=== PATIENT | male | born 1955 | race Caucasian/White ===

== ENCOUNTER 2016-08-03 16:40 | Emergency (ER) | payer MEDICARE, MEDICAID ==
[2016-08-03 16:57] VITALS: BP 155/75
--- NOTE | 2016-08-03 17:44 | EDM.PDOC ---
ED HPI GENERAL MEDICAL PROBLEM - General Chief Complaint: General Stated Complaint: wound on abdomen Time Seen by Provider: 08/03/16 17:20 Source of Information: Reports: Patient History Limitations: Reports: No limitations - History of Present Illness INITIAL COMMENTS - FREE TEXT/NARRATIVE: PT STATES HE NOTICED BLEEDING FROM ABDOMINAL HERNIA AT 0300 TODAY. DENIES TRAUMA , FEVER, N/V/D. ADMITS AREA HAS BEEN IRRITATED LATELY AND MAY HAVE BEEN CAUSED BY ONLY SWEAT PANTS HE WEARS. 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) - Related Data Allergies Allergy/AdvReac Type Severity Reaction Status Date / Time No Known Drug Allergies Allergy Cannot Verified 08/03/16 16:49 Remember Home Meds: Home Meds Aspirin/Acetaminophen/Caffeine [Extra Pain Relief Caplet] 2 tab PO TID PRN 12/10 [History] Furosemide [Lasix] 80 mg PO BID 12/11/15 [History] Levothyroxine 25 mcg PO ACBREAKFAST 12/11/15 [History] Pregabalin [Lyrica] 50 mg PO BID@12/11/15 [History] Sertraline [Zoloft] 50 mg PO DAILY 12/11/15 [History] Simvastatin 20 mg PO DAILY 12/11/15 [History] Terbinafine [LamISIL] 250 mg PO DAILY 12/11/15 [History] Topiramate [Topamax] 25 mg PO BID 12/11/15 [History] oxyCODONE 5 mg PO TID 12/11/15 [History] oxyCODONE ER [OxyCONTIN] 10 mg PO DAILY@16 12/11/15 [History] Pregabalin [Lyrica] 25 mg PO TID 12/14/15 [History] Pregabalin [Lyrica] 50 mg PO DAILY PRN 12/14/15 [History] Cefuroxime Axetil [Cefuroxime] 500 mg PO BID 03/18/16 [History] Doxycycline Hyclate 100 mg PO DAILY 03/18/16 [History] Rup Rub 1 gm TOP DAILY 03/18/16 [History] Aspirin 325 mg PO DAILY 06/01/16 [History] Potassium Chloride [Klor-Con M20] 40 meq PO BID 06/01/16 [History] Pseudoephedrine HCl [Sudafed] 30 mg PO TID PRN 06/01/16 [History] Spironolactone [Aldactone] 25 mg PO DAILY 06/01/16 [History] oxyCODONE ER [OxyCONTIN] 10 mg PO DAILY PRN 06/01/16 [History] Past Medical History HEENT History: Reports: Other (see below) Other HEENT History: glasses Cardiovascular History: Reports: CAD, Heart Failure, High cholesterol, Hypertension, SOB on exertion Other Cardiovascular History: Dyslipidemia/hypercholesterolemia Respiratory History: Reports: Sleep apnea, SOB Other Respiratory History: cpap - does not use it. home o2 Gastrointestinal History: Reports: Other (see below) Other Gastrointestinal History: morbid obesity. lg abd hernia. Very large panniculus- abd. Constipation. Melena/medication at times Genitourinary History: Reports: Urinary incontinence Other Genitourinary History: frequency. 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 Previous kidney failure. Mccann catheter in place Musculoskeletal History: Reports: Arthritis, Back pain, chronic, Fracture Other Musculoskeletal History: L and R knee pain - chronic. R leg saeed lateraly Neurological History: Reports: Concussion Psychiatric History: Reports: None Endocrine/Metabolic History: Reports: Hypothyroidism Hematologic History: Reports: None Dermatologic History: Reports: Cellulitis, Venous stasis dermatitis Other Dermatologic History: R groin with ulcers in fold - reports HX of same. hard dry/dark/roug/scaly skin over entire large pendoulous abd. dry scabs to post scrotum. States h/o MRSA - Infectious Disease History Infectious Disease History: Reports: MRSA Other Infectious Disease History: Recurrent cellulitis. Recurrent lower leg infection - Past Surgical History Head Surgeries/Procedures: Reports: None HEENT Surgical History: Reports: Other (see below) Other HEENT Surgeries/Procedures: steal joshua removed fro eye Neurological Surgical History: Reports: None - History Comment History Comment: Morbid morbid obesity. Obstructive sleep apnea. Noncompliance Social & Family History - Family History Family Medical History: Noncontributory Other Oncologic Family History: sister from cancer, unsure which kind - Tobacco Use Smoking Status *Q: Former Smoker Years of Tobacco use: 22 Packs/Tins Daily: 1 Used Tobacco, but Quit: Yes Month Tobacco Last Used: july Second Hand Smoke Exposure: Yes - Caffeine Use Caffeine Use: Reports: None - Alcohol Use Days Per Week of Alcohol Use: 7 Number of Drinks Per Day: 1 Total Drinks Per Week: 7 - Recreational Drug Use Recreational Drug Use: No - Living Situation & Occupation Living situation: Reports: Occupation: disabled ED ROS GENERAL - Review of Systems Review Of Systems: ROS reveals no pertinent complaints other than HPI. Constitutional: Reports: no symptoms HEENT: Reports: No symptoms Respiratory: Reports: No Symptoms Cardiovascular: Reports: No symptoms Endocrine: Reports: no symptoms GI/Abdominal: Reports: No symptoms : Reports: no symptoms Musculoskeletal: Reports: no symptoms Skin: Reports: wound (ON ABDOMINAL HERNIA) Neurological: Reports: No Symptoms Psychiatric: Reports: No symptoms Hematologic/Lymphatic: Reports: no symptoms Immunologic: Reports: no symptoms ED EXAM, GENERAL - Physical Exam Exam: See Below Free Text/Narrative:: PT IS MORBIDLY OBESE AT APPROX 500 LBS. HAS ABDOMINAL HERNIA FOR MANY YEARS AND IS SCHEDULED FOR SURGERY IN NEXT COMING WEEKS. DENIES PAIN. STATES THE WOUND OPENED UP LAST NIGHT AND BLEED FOR A SHORT TIME. HAS SINCE RESOLVED. WOUND IS 2CM UL;CERATION WITH MINIMAL BORDER ERYTHEMA. PT IS AFEBRILE AND ALREADY ON SEVERAL ABX. Exam Limited By: No limitations General Appearance: alert, WD/WN, no apparent distress Throat/Mouth: Normal inspection, Normal oropharynx, No airway compromise Respiratory/Chest: no respiratory distress, lungs clear Cardiovascular: regular rate, rhythm GI/Abdominal: normal bowel sounds, soft, non tender Neurological: alert, oriented, normal cognition Psychiatric: normal affect, normal mood Skin Exam: Warm, Dry, Normal color, No rash, Other (ULCER WITH MINIMAL BORDER ERYTHEMA) Lymphatic: no adenopathy Course - Vital Signs Last Recorded V/S: Last Vital Signs Temp 99.0 F 08/03/16 16:45 Pulse 80 08/03/16 16:45 Resp 18 08/03/16 16:45 BP 155/75 H 08/03/16 16:45 Pulse Ox 93 L 08/03/16 16:45 - Re-Assessments/Exams Free Text/Narrative Re-Assessment/Exam: 08/03/16 17:45 PT AFEBRILE, NONTOXIC APPEARING, VSS. WOUND DRESSED AND EXTRA DRESSINGS WITH INSTRUCTION GIVEN TO PT BY NURSE Departure - Departure Time of Disposition: 17:47 Disposition: Home, Self-Care 01 Condition: good Clinical Impression: Wound dehiscence, Skin ulcer of right groin, limited to breakdown of skin, Skin ulcer of abdomen Instructions: How to Prevent Pressure Injuries, How to Change Your Dressing, [id number] Forms: ED Department Discharge - Assessment/Plan Assessment:: HERNIA/ ABDOMINAL WOUND CARE Plan: DRESSING CHANGES AND F/U WITH PCP
== END 2016-08-03 18:00 | disposition home or self-care (01) ==
LOC: KA.ED 16:40
DX: T81.30XA Disruption of wound, unspecified, initial encounter (principal); L98.491 Non-pressure chronic ulcer of skin of other sites limited to breakdown of skin; I25.10 Atherosclerotic heart disease of native coronary artery without angina pectoris; I11.0 Hypertensive heart disease with heart failure; I50.9 Heart failure, unspecified; E78.00 Pure hypercholesterolemia, unspecified; E66.01 Morbid (severe) obesity due to excess calories; M19.90 Unspecified osteoarthritis, unspecified site; E03.9 Hypothyroidism, unspecified; Z87.891 Personal history of nicotine dependence; Z86.14 Personal history of Methicillin resistant Staphylococcus aureus infection; Z79.82 Long term (current) use of aspirin; Z79.899 Other long term (current) drug therapy
CPT/HCPCS: 99282

== ENCOUNTER 2016-08-11 16:12 | Emergency (ER) | payer MEDICARE, MEDICAID ==
[2016-08-11 16:45] VITALS: BP 147/69
--- NOTE | 2016-08-11 18:13 | EDM.PDOC ---
ED HISTORY OF PRESENT ILLNESS - General Chief Complaint: Respiratory Problem Stated Complaint: short of breath Time Seen by Provider: 08/11/16 17:00 Source of Information: Reports: Patient History Limitations: Reports: No limitations - History of Present Illness INITIAL COMMENTS - FREE TEXT/NARRATIVE: PT SENT BY [facility] BECAUSE PT C/O WEIGHT GAIN OVER PAST FEW MONTHS, BILAT LEG PAIN OF CHRONIC NATURE, AND BEGINNING TO DEVELOP SOB. DENIES CP, FEVER , FALL, OR BOWEL CHANGES. Timing/Duration: Reports: Gradual onset Severity: mild Location, General: Reports: lower extremity, right Quality: Reports: Ache Improves with: Reports: None Worsens with: Reports: None Associated Symptoms (General): Reports: shortness of breath. Denies: cough, fever/chills, nausea/vomiting - Related Data Allergies/ADRs: Allergies Allergy/AdvReac Type Severity Reaction Status Date / Time No Known Drug Allergies Allergy Cannot Verified 08/11/16 16:45 Remember Home Meds: Home Meds Aspirin/Acetaminophen/Caffeine [Extra Pain Relief Caplet] 2 tab PO TID PRN 12/10 [History] Furosemide [Lasix] 80 mg PO BID 12/11/15 [History] Levothyroxine 25 mcg PO ACBREAKFAST 12/11/15 [History] Pregabalin [Lyrica] 50 mg PO BID@12/11/15 [History] Sertraline [Zoloft] 50 mg PO DAILY 12/11/15 [History] Simvastatin 20 mg PO DAILY 12/11/15 [History] Terbinafine [LamISIL] 250 mg PO DAILY 12/11/15 [History] Topiramate [Topamax] 25 mg PO BID 12/11/15 [History] oxyCODONE 5 mg PO TID 12/11/15 [History] oxyCODONE ER [OxyCONTIN] 10 mg PO DAILY@16 12/11/15 [History] Pregabalin [Lyrica] 25 mg PO TID 12/14/15 [History] Pregabalin [Lyrica] 50 mg PO DAILY PRN 12/14/15 [History] Cefuroxime Axetil [Cefuroxime] 500 mg PO BID 03/18/16 [History] Doxycycline Hyclate 100 mg PO DAILY 03/18/16 [History] Rup Rub 1 gm TOP DAILY 03/18/16 [History] Aspirin 325 mg PO DAILY 06/01/16 [History] Potassium Chloride [Klor-Con M20] 40 meq PO BID 06/01/16 [History] Pseudoephedrine HCl [Sudafed] 30 mg PO TID PRN 06/01/16 [History] Spironolactone [Aldactone] 25 mg PO DAILY 06/01/16 [History] oxyCODONE ER [OxyCONTIN] 10 mg PO DAILY PRN 06/01/16 [History] Past Medical History HEENT History: Reports: Other (see below) Other HEENT History: glasses Cardiovascular History: Reports: CAD, Heart Failure, High cholesterol, Hypertension, SOB on exertion Other Cardiovascular History: Dyslipidemia/hypercholesterolemia Respiratory History: Reports: Sleep apnea, SOB Other Respiratory History: cpap - does not use it. home o2 Gastrointestinal History: Reports: Other (see below) Other Gastrointestinal History: morbid obesity. lg abd hernia. Very large panniculus- abd. Constipation. Melena/medication at times Genitourinary History: Reports: Urinary incontinence Other Genitourinary History: frequency. 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 Previous kidney failure. Mccann catheter in place Musculoskeletal History: Reports: Arthritis, Back pain, chronic, Fracture Other Musculoskeletal History: L and R knee pain - chronic. R leg saeed lateraly Neurological History: Reports: Concussion Psychiatric History: Reports: None Endocrine/Metabolic History: Reports: Hypothyroidism Hematologic History: Reports: None Dermatologic History: Reports: Cellulitis, Venous stasis dermatitis Other Dermatologic History: R groin with ulcers in fold - reports HX of same. hard dry/dark/roug/scaly skin over entire large pendoulous abd. dry scabs to post scrotum. States h/o MRSA - Infectious Disease History Infectious Disease History: Reports: MRSA Other Infectious Disease History: Recurrent cellulitis. Recurrent lower leg infection - Past Surgical History Head Surgeries/Procedures: Reports: None HEENT Surgical History: Reports: Other (see below) Other HEENT Surgeries/Procedures: steal joshua removed fro eye Neurological Surgical History: Reports: None - History Comment History Comment: Morbid morbid obesity. Obstructive sleep apnea. Noncompliance Social & Family History - Family History Family Medical History: Noncontributory Other Oncologic Family History: sister from cancer, unsure which kind - Tobacco Use Smoking Status *Q: Former Smoker Years of Tobacco use: 22 Packs/Tins Daily: 0.3 Used Tobacco, but Quit: Yes Month Tobacco Last Used: july Second Hand Smoke Exposure: Yes - Caffeine Use Caffeine Use: Reports: None - Alcohol Use Days Per Week of Alcohol Use: 7 Number of Drinks Per Day: 1 Total Drinks Per Week: 7 - Recreational Drug Use Recreational Drug Use: No - Living Situation & Occupation Living situation: Reports: Occupation: disabled ED ROS GENERAL - Review of Systems Review Of Systems: ROS reveals no pertinent complaints other than HPI. Constitutional: Reports: no symptoms HEENT: Reports: No symptoms Respiratory: Reports: Shortness of Breath Cardiovascular: Reports: No symptoms Endocrine: Reports: no symptoms GI/Abdominal: Reports: No symptoms : Reports: other (HAS INDWELLING CATH OF CHRONIC NATURE) Skin: Reports: no symptoms Neurological: Reports: No Symptoms Psychiatric: Reports: No symptoms Hematologic/Lymphatic: Reports: no symptoms Immunologic: Reports: no symptoms ED EXAM, GENERAL - Physical Exam Exam: See Below Free Text/Narrative:: PT IS A 600LB MORBIDLY OBESE MALE WHO LIVES ALONE AND APPEARS DISHEVELED. Exam Limited By: No limitations General Appearance: alert, WD/WN, no apparent distress Throat/Mouth: Normal inspection, Normal oropharynx, No airway compromise Head: atraumatic, normocephalic Respiratory/Chest: no respiratory distress, normal breath sounds, no accessory muscle use Cardiovascular: regular rate, rhythm, no murmur Extremities: pedal edema Neurological: alert, oriented, normal cognition Psychiatric: normal affect, normal mood Skin Exam: Warm, Dry, Intact, Normal color, No rash Lymphatic: no adenopathy Course - Vital Signs Last Recorded V/S: Last Vital Signs Temp 99.0 F 08/11/16 16:42 Pulse 80 08/11/16 16:42 Resp 22 H 08/11/16 16:42 BP 147/69 H 08/11/16 16:42 Pulse Ox 90 L 08/11/16 16:42 - Orders/Labs/Meds Orders: Active Orders 24 hr Category Date Time Status Chest 1V Frontal [CR] Stat Exams 08/11/16 17:25 Ordered - Radiology Interpretation Free Text/Narrative:: CXR NEGATIVE FOR ACUTE PROCESS - Re-Assessments/Exams Free Text/Narrative Re-Assessment/Exam: 08/11/16 18:39 PT AFEBRILE, NONTOXIC APPEARING. WILL F/U WITH PCP Departure - Departure Time of Disposition: 18:40 Disposition: Home, Self-Care 01 Condition: fair Clinical Impression: Obesity, morbid Qualifiers: Obesity type: unspecified obesity type Qualified Code(s): E66.01 - Morbid ( severe) obesity due to excess calories Chronic pain Qualifiers: Chronic pain type: chronic pain syndrome Qualified Code(s): G89.4 - Chronic pain syndrome Instructions: Shortness of Breath, [id number], Obesity Forms: ED Department Discharge Additional Instructions: FOLLOW UP WITH YOUR PCP IN NEXT 1-2 DAYS - My Orders Last 24 Hours: My Active Orders 08/11/16 17:25 Chest 1V Frontal [CR] Stat - Assessment/Plan Last 24 Hours: My Active Orders 08/11/16 17:25 Chest 1V Frontal [CR] Stat Assessment:: MORBID OBESITY WITH INCREASING SOB Plan: F/U WITH PCP
== END 2016-08-11 22:15 | disposition home or self-care (01) ==
LOC: KA.ED 16:12
DX: E66.01 Morbid (severe) obesity due to excess calories (principal); G89.4 Chronic pain syndrome; I25.10 Atherosclerotic heart disease of native coronary artery without angina pectoris; E78.00 Pure hypercholesterolemia, unspecified; I11.0 Hypertensive heart disease with heart failure; E03.9 Hypothyroidism, unspecified; Z87.891 Personal history of nicotine dependence; Z79.899 Other long term (current) drug therapy
CPT/HCPCS: 71010; 99282; 99285

== ENCOUNTER 2017-09-01 23:45 | Emergency (ER) | payer MEDICARE, MEDICAID ==
[2017-09-01 23:53] VITALS: BP 128/60
[2017-09-02] MEDS ORDERED: Sodium Chloride 0.9% 5 ML Syringe FLUSH PRN (00:15)
--- NOTE | 2017-09-02 00:49 | EDM.PDOC ---
ED HPI GENERAL MEDICAL PROBLEM - General Chief Complaint: General Stated Complaint: general weakness Time Seen by Provider: 09/02/17 00:05 Source of Information: Reports: Patient, EMS History Limitations: Reports: No Limitations - History of Present Illness INITIAL COMMENTS - FREE TEXT/NARRATIVE: 62 YO WM morbidly obese with multiple medical problems presents to ER with progressive weakness and shortness of breath. Pt reports he is unable to care for himself due to his weight and worsening condition. Pt complaining today of episode of shortness of breath and weakness. Pt states he can not transfer without assistance. Pt reports he also has pain and infection to his right great toe. Pt denies chest pain, dizziness or nausea/vomiting. Pt had an appointment in clinic today but was unable to make it due to weakness. Pt denies any fever/chills, no URI symptoms. Onset: Today Duration: Chronic, Getting Worse Location: Reports: Generalized Severity: Moderate Improves with: Reports: None Worsens with: Reports: None Associated Symptoms: Reports: Malaise, Shortness of Breath, Weakness. Denies: Confusion, Chest Pain, Cough, cough w sputum, Diaphoresis, Fever/Chills, Headaches, Loss of Appetite, Nausea/Vomiting, Rash, Seizure, Syncope - Related Data Allergies Allergy/AdvReac Type Severity Reaction Status Date / Time No Known Drug Allergies Allergy Cannot Verified 09/01/17 23:47 Remember Home Meds: Home Meds Furosemide [Lasix] 80 mg PO BID 12/11/15 [History] Levothyroxine 25 mcg PO ACBREAKFAST 12/11/15 [History] Sertraline [Zoloft] 50 mg PO DAILY 12/11/15 [History] Simvastatin 20 mg PO DAILY 12/11/15 [History] Terbinafine [LamISIL] 250 mg PO DAILY 12/11/15 [History] Topiramate [Topamax] 25 mg PO BID 12/11/15 [History] oxyCODONE 5 mg PO TID 12/11/15 [History] Pregabalin [Lyrica] 25 mg PO TID 12/14/15 [History] Rup Rub 1 applic TOP BID 03/18/16 [History] Aspirin 325 mg PO DAILY 06/01/16 [History] Pseudoephedrine HCl [Sudafed] 30 mg PO TID PRN 06/01/16 [History] Spironolactone [Aldactone] 25 mg PO DAILY 06/01/16 [History] Cyanocobalamin (Vitamin B-12) [Vitamin B-12] 5,000 mcg SL TID 08/26/16 [History] Metolazone [Zaroxolyn] 2.5 mg PO DAILY 08/26/16 [History] Pregabalin [Lyrica] 50 mg PO BID 08/26/16 [History] oxyCODONE ER [OxyCONTIN] 10 mg PO BEDTIME 08/26/16 [History] Doxycycline Calcium [IMW: Doxycycline] 100 mg PO DAILY #30 capsule 08/29/16 [Rx] Ibuprofen 600 mg PO Q4H 09/02/17 [History] Nystatin [Nystatin Crm] 1 gm TOP BID PRN 09/02/17 [History] Past Medical History HEENT History: Reports: Other (See Below) Other HEENT History: glasses Cardiovascular History: Reports: CAD, Heart Failure, High Cholesterol, Hypertension, SOB on Exertion Other Cardiovascular History: Dyslipidemia/hypercholesterolemia Respiratory History: Reports: Sleep Apnea, SOB Other Respiratory History: cpap - does not use it. home o2 Gastrointestinal History: Reports: Other (See Below) Other Gastrointestinal History: morbid obesity. lg abd hernia. Very large panniculus- abd. Constipation. Melena/medication at times Genitourinary History: Reports: Urinary Incontinence Other Genitourinary History: frequency. 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 Previous kidney failure. Mccann catheter in place Musculoskeletal History: Reports: Arthritis, Back Pain, Chronic, Fracture Other Musculoskeletal History: L and R knee pain - chronic. R leg saeed lateraly Neurological History: Reports: Concussion Psychiatric History: Reports: None Endocrine/Metabolic History: Reports: Hypothyroidism Hematologic History: Reports: None Dermatologic History: Reports: Cellulitis, Venous Stasis Dermatitis Other Dermatologic History: R groin with ulcers in fold - reports HX of same. hard dry/dark/roug/scaly skin over entire large pendoulous abd. dry scabs to post scrotum. 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 Recurrent lower leg infection - Past Surgical History Head Surgeries/Procedures: Reports: None HEENT Surgical History: Reports: Other (See Below) Male Surgical History: Reports: Other (See Below) Neurological Surgical History: Reports: None Musculoskeletal Surgical History: Reports: Other (See Below) - History Comment History Comment: Morbid morbid obesity. Obstructive sleep apnea. Noncompliance Social & Family History - Family History Family Medical History: Noncontributory Other Oncologic Family History: sister from cancer, unsure which kind - Tobacco Use Smoking Status *Q: Former Smoker Years of Tobacco use: 21 Packs/Tins Daily: 4 Used Tobacco, but Quit: Yes Month/Year Tobacco Last Used: 04/07/1989 Second Hand Smoke Exposure: No - Caffeine Use Caffeine Use: Reports: None - Alcohol Use Days Per Week of Alcohol Use: 7 Number of Drinks Per Day: 6 Total Drinks Per Week: 42 - Recreational Drug Use Recreational Drug Use: No - Living Situation & Occupation Living situation: Reports: Occupation: Disabled ED ROS GENERAL - Review of Systems Review Of Systems: See Below Constitutional: Reports: Weakness, Fatigue HEENT: Reports: No Symptoms Respiratory: Reports: Shortness of Breath Cardiovascular: Reports: Dyspnea on Exertion, Edema, Orthopnea Endocrine: Reports: No Symptoms GI/Abdominal: Reports: No Symptoms : Reports: No Symptoms Skin: Reports: Wound (right great toe) Neurological: Reports: Difficulty Walking, Weakness Psychiatric: Reports: No Symptoms Hematologic/Lymphatic: Reports: No Symptoms Immunologic: Reports: No Symptoms ED EXAM, GENERAL - Physical Exam Exam: See Below Exam Limited By: No Limitations General Appearance: Alert, WD/WN, No Apparent Distress Nose: Normal Inspection, Normal Mucosa, No Blood Throat/Mouth: Normal Inspection, Normal Lips, Normal Teeth, Normal Gums, Normal Oropharynx, Normal Voice, No Airway Compromise Head: Atraumatic, Normocephalic Neck: Normal Inspection, Supple, Non-Tender, Full Range of Motion Respiratory/Chest: No Respiratory Distress, No Accessory Muscle Use, Chest Non- Tender, Decreased Breath Sounds Cardiovascular: Normal Peripheral Pulses, Regular Rate, Rhythm, No Edema, No Gallop, No JVD, No Murmur, No Rub GI/Abdominal: Normal Bowel Sounds, Soft, Non-Tender, No Organomegaly, No Distention, No Abnormal Bruit, No Mass Extremities: Pedal Edema, Leg Pain, Increased Warmth, Redness Neurological: Alert, Oriented, CN II-XII Intact, Normal Cognition, Normal Gait, Normal Reflexes, No Motor/Sensory Deficits Psychiatric: Normal Affect, Normal Mood Skin Exam: Erythema (right great toe), Increased Warmth (right great toe) EKG INTERPRETATION EKG Date: 09/02/17 Time: 00:50 Rhythm: NSR Rate (Beats/Min): 94 [place]: LAD-Left [place] Deviation P-Wave: Present QRS: Normal ST-T: Normal QT: Normal Comparison: NA - No Prior EKG Course - Vital Signs Last Recorded V/S: Last Vital Signs Temp 36.7 C 09/01/17 23:49 Pulse 110 H 09/01/17 23:49 Resp 20 09/01/17 23:49 BP 128/60 09/01/17 23:49 Pulse Ox 95 09/01/17 23:49 - Orders/Labs/Meds Orders: Active Orders 24 hr Category Date Time Status EKG Documentation Completion [RC] ASDIRECTED Care 09/02/17 00:17 Active Peripheral IV Care [RC] . DIRECTED Care 09/02/17 00:16 Active Chest 2V [CR] Stat Exams 09/02/17 00:17 Ordered Toes Great Toe Rt T5 [CR] Stat Exams 09/02/17 00:40 Ordered UA W/MICROSCOPIC [URIN] Stat Lab 09/02/17 00:16 Ordered Sodium Chloride 0.9% [Syrex Flush] Med 09/02/17 00:15 Active 5 ml FLUSH Q8HR PRN Peripheral IV Insertion Adult [OM.PC] Stat Oth 09/02/17 00:15 Ordered EKG 12 Lead [EK] Stat Ther 09/02/17 00:15 Ordered Medication Orders Sodium Chloride (Syrex Flush) 5 ml FLUSH Q8HR PRN PRN Reason: Keep Vein Open Labs: Laboratory Tests 09/02/17 09/02/17 09/02/17 Range/Units 00:25 00:25 00:25 WBC 16.7 H (5.0-10.0) 10^3/uL RBC 5.47 (4.50-6.00) 10^6/uL Hgb 15.7 D (13.0-17.0) g/dL Hct 47.3 (40.0-52.0) % MCV 86.6 D (82.0-92.0) fL MCH 28.7 (27.0-31.0) pg MCHC 33.2 (32.0-36.0) g/dL RDW 13.7 (11.5-14.5) % Plt Count 353 H (150-300) 10^3/uL MPV 7.9 (7.4-10.4) fL Neut % (Auto) 88.0 H (50.0-70.0) % Lymph % (Auto) 5.3 L (20.0-40.0) % [place] % (Auto) 5.8 (2.0-8.0) % Eos % (Auto) 0.4 L (1.0-3.0) % Baso % (Auto) 0.5 (0.0-1.0) % Neut # (Auto) 14.6 H (2.5-7.0) 10^3/uL Lymph # (Auto) 0.9 L (1.0-4.0) 10^3/uL Hood # (Auto) 1.0 H (0.1-0.8) 10^3/uL Eos # (Auto) 0.1 (0.1-0.3) 10^3/uL Baso # (Auto) 0.1 (0.0-0.1) 10^3/uL Sodium 143 (136-145) mmol/L Potassium 3.7 (3.3-5.3) mmol/L Chloride 100 (98-115) mmol/L Carbon Dioxide 27.3 (21.0-32.0) mmol/L BUN 14 (6-25) mg/dL Creatinine 1.06 (0.51-1.17) mg/dL Est Cr Clr Drug Dosing 66.69 mL/min Estimated GFR (MDRD) > 60 mL/min Glucose 130 H (70-110) mg/dL Calcium 9.2 (8.7-10.3) mg/dL Total Bilirubin 0.5 (0.2-1.0) mg/dL AST 22 (15-37) U/L ALT 21 (12-78) U/L Alkaline Phosphatase 84 (46-116) IU/L Creatine Kinase 73 (26-276) U/L CK-MB (CK-2) 0.80 (0.00-4.30) ng/mL Troponin I 0.04 (0.00-0.070) ng/mL B-Natriuretic Peptide 23 (0-100) pg/mL Total Protein 8.1 (6.4-8.2) g/dL Albumin 3.26 (3.00-4.80) g/dL Specimen Type Urine Color (YELLOW) Urine Appearance (CLEAR) Urine pH (5.0-9.0) Ur Specific [place] (1.005-1.030) Urine Protein (NEGATIVE) mg/dL Urine Glucose (UA) (NEGATIVE) mg/dL Urine Ketones (NEGATIVE) mg/dL Urine Occult Blood (NEGATIVE) Urine Nitrite (NEGATIVE) Urine Bilirubin (NEGATIVE) Urine Urobilinogen (0.2-1.0) E.U./dL Ur Leukocyte Esterase (NEGATIVE) Urine RBC /HPF Urine WBC /HPF Ur Epithelial Cells /LPF Urine Bacteria (NONE TO FEW) /HPF 09/02/17 Range/Units 00:34 WBC (5.0-10.0) 10^3/uL RBC (4.50-6.00) 10^6/uL Hgb (13.0-17.0) g/dL Hct (40.0-52.0) % MCV (82.0-92.0) fL MCH (27.0-31.0) pg MCHC (32.0-36.0) g/dL RDW (11.5-14.5) % Plt Count (150-300) 10^3/uL MPV (7.4-10.4) fL Neut % (Auto) (50.0-70.0) % Lymph % (Auto) (20.0-40.0) % Hood % (Auto) (2.0-8.0) % Eos % (Auto) (1.0-3.0) % Baso % (Auto) (0.0-1.0) % Neut # (Auto) (2.5-7.0) 10^3/uL Lymph # (Auto) (1.0-4.0) 10^3/uL Hood # (Auto) (0.1-0.8) 10^3/uL Eos # (Auto) (0.1-0.3) 10^3/uL Baso # (Auto) (0.0-0.1) 10^3/uL Sodium (136-145) mmol/L Potassium (3.3-5.3) mmol/L Chloride (98-115) mmol/L Carbon Dioxide (21.0-32.0) mmol/L BUN (6-25) mg/dL Creatinine (0.51-1.17) mg/dL Est Cr Clr Drug Dosing mL/min Estimated GFR (MDRD) mL/min Glucose (70-110) mg/dL Calcium (8.7-10.3) mg/dL Total Bilirubin (0.2-1.0) mg/dL AST (15-37) U/L ALT (12-78) U/L Alkaline Phosphatase (46-116) IU/L Creatine Kinase (26-276) U/L CK-MB (CK-2) (0.00-4.30) ng/mL Troponin I (0.00-0.070) ng/mL B-Natriuretic Peptide (0-100) pg/mL Total Protein (6.4-8.2) g/dL Albumin (3.00-4.80) g/dL Specimen Type Urinfol Urine Color Yellow (YELLOW) Urine Appearance Cloudy H (CLEAR) Urine pH 8.5 (5.0-9.0) Ur Specific [place] 1.020 (1.005-1.030) Urine Protein >=300 H (NEGATIVE) mg/dL Urine Glucose (UA) Negative (NEGATIVE) mg/dL Urine Ketones Negative (NEGATIVE) mg/dL Urine Occult Blood Moderate H (NEGATIVE) Urine Nitrite Negative (NEGATIVE) Urine Bilirubin Negative (NEGATIVE) Urine Urobilinogen 0.2 (0.2-1.0) E.U./dL Ur Leukocyte Esterase Large H (NEGATIVE) Urine RBC 40-50 H /HPF Urine WBC Semi-packed /HPF Ur Epithelial Cells Few /LPF Urine Bacteria Many H (NONE TO FEW) /HPF Meds: Medications Generic Name Dose Route Start Last Admin Trade Name Freq PRN Reason Stop Dose Admin Sodium Chloride 5 ml 09/02/17 00:15 Syrex Flush FLUSH Q8HR PRN Keep Vein Open - Radiology Interpretation Free Text/Narrative:: cxr- CM; NAD right great toe- no osteo Departure - Departure Time of Disposition: 01:17 Disposition: DC/Tfer to Acute Hospital 02 Condition: Poor Clinical Impression: Morbid obesity with BMI of 70 and over, adult, Shortness of breath at rest, UTI , Urinary tract infectious disease, Generalized weakness - Discharge Information Referrals: Timur Mcdonnell, COMPLIANCE REVIEW OFFICER [Primary Care Provider] - Forms: ED Department Discharge, Interfacility Transfer EMTALA - My Orders Last 24 Hours: My Active Orders 09/02/17 00:15 Sodium Chloride 0.9% [Syrex Flush] 5 ml FLUSH Q8HR PRN Peripheral IV Insertion Adult [OM.PC] Stat EKG 12 Lead [EK] Stat 09/02/17 00:16 Peripheral IV Care [RC] . DIRECTED UA W/MICROSCOPIC [URIN] Stat 09/02/17 00:17 EKG Documentation Completion [RC] ASDIRECTED Chest 2V [CR] Stat 09/02/17 00:40 Toes Great Toe Rt T5 [CR] Stat - Assessment/Plan Last 24 Hours: My Active Orders 09/02/17 00:15 Sodium Chloride 0.9% [Syrex Flush] 5 ml FLUSH Q8HR PRN Peripheral IV Insertion Adult [OM.PC] Stat EKG 12 Lead [EK] Stat 09/02/17 00:16 Peripheral IV Care [RC] . DIRECTED UA W/MICROSCOPIC [URIN] Stat 09/02/17 00:17 EKG Documentation Completion [RC] ASDIRECTED Chest 2V [CR] Stat 09/02/17 00:40 Toes Great Toe Rt T5 [CR] Stat Assessment:: 1. Generalized weakness 2. Dyspnea 3. UTI 4. Leukocytosis Plan: 1. transfer to [facility] 2. rocephin 1g iv qd 3. supportive care
[2017-09-02 01:08] LABS: CHLORIDE,CL 100 mmol/L (98-115); SODIUM,NA 143 mmol/L (136-145)
[2017-09-02] MEDS ORDERED: cefTRIAXone 1 GM Vial IVPUSH ONE (01:28)
[2017-09-02] MEDS ORDERED: oxyCODONE 5 MG Tab PO ONE (01:53)
[2017-09-02] MEDS ORDERED: Pregabalin 100 MG Cap PO SCH (21:00)
== END 2017-09-02 06:12 ==
LOC: KA.ED 23:45
DX: N39.0 Urinary tract infection, site not specified (principal); R06.02 Shortness of breath; D72.829 Elevated white blood cell count, unspecified; E66.8 Other obesity; I11.0 Hypertensive heart disease with heart failure; I50.9 Heart failure, unspecified; E78.00 Pure hypercholesterolemia, unspecified; E03.9 Hypothyroidism, unspecified; Z68.45 Body mass index [BMI] 70 or greater, adult; Z79.899 Other long term (current) drug therapy; Z79.82 Long term (current) use of aspirin; Z87.891 Personal history of nicotine dependence
CPT/HCPCS: 71046; 73660-T5; 80053; 81001; 82550; 82553; 83880; 84484; 85025; 93005; 96374; 99285; A9270-GY; J0696

== ENCOUNTER 2023-03-01 08:05 | Emergency (ER) | payer MEDICARE ==
[2023-03-01 08:29] VITALS: BP 131/91; PULSE 97
[2023-03-01 09:01] LABS: ANION GAP 8.5 mmol/L (5-15); CARBON DIOXIDE,CO2 31.8 mmol/L (21.0-32.0); CREATININE 1.15 mg/dL (0.51-1.17); EST CRCL DRUG DOSING (CG) 56.68 mL/min; POTASSIUM,K 4.3 mmol/L (3.5-5.1)
[2023-03-01 09:05] LABS: BASOPHILS ABSOLUTE AUTO 0.04 10^3/uL (0.00-0.10); BASOPHILS PERCENT AUTO 0.6 % (0.0-1.0); EOSINOPHILS PERCENT AUTO 1.4 % (1.0-3.0); HEMATOCRIT 46.2 % (40.0-52.0); HEMOGLOBIN 14.5 g/dL (13.0-17.0); IMMATURE GRAN ABSOLUTE AUTO 0.33 10^3/uL (0.00-0.50); IMMATURE GRAN PERCENT AUTO 4.6 % (0.0-5.0); LYMPHOCYTES ABSOLUTE AUTO 1.06 10^3/uL (1.00-4.00); LYMPHOCYTES PERCENT AUTO 14.7 % (20.0-40.0); MEAN CORPUSCULAR HEMOGLOBIN 27.7 pg (27.0-31.0); MEAN CORPUSCULAR HGB CONC 31.4 g/dL (32.0-36.0); MEAN CORPUSCULAR VOLUME 88.2 fL (82.0-92.0); MEAN PLATELET VOLUME 9.3 fL (7.4-10.4); MONOCYTES ABSOLUTE AUTO 0.93 10^3/uL (0.10-0.80); MONOCYTES PERCENT AUTO 12.9 % (2.0-8.0); NEUTROPHILS ABSOLUTE AUTO 4.77 10^3/uL (2.50-7.00); NEUTROPHILS PERCENT AUTO 65.8 % (50.0-70.0); PLATELET COUNT,PLT 223 10^3/uL (150-400); RED BLOOD CELL COUNT 5.24 10^6/uL (4.50-6.00); RED CELL DISTRIBUTION WIDTH 14.5 % (11.5-14.5); WHITE BLOOD CELL COUNT,WBC 7.23 10^3/uL (5.00-10.00)
[2023-03-01] MEDS ORDERED: Insulin Lispro 100 Unit/ML 3 ML KwikPen SUBCUT ONE (09:38)
[2023-03-01] MEDS ORDERED: Lidocaine 2% Jelly 5 ML Tube TOP ONE (10:45)
== END 2023-03-01 11:00 ==
LOC: KA.ED 08:05
DX: E11.65 Type 2 diabetes mellitus with hyperglycemia (principal); I25.10 Atherosclerotic heart disease of native coronary artery without angina pectoris; I11.0 Hypertensive heart disease with heart failure; I50.9 Heart failure, unspecified; E78.00 Pure hypercholesterolemia, unspecified; Z79.899 Other long term (current) drug therapy
CPT/HCPCS: 36415; 80048; 82947; 83605; 85025; 99285; J1815-GY

== ENCOUNTER 2023-08-05 14:05 | Emergency (ER) | payer BC, MEDICAID, MEDICARE ==
[~2023-08-05 14:05] MED LIST: Sodium Chloride 0.9% 10 ML Syringe FLUSH PRN
[2023-08-05 14:38] LABS: BASOPHILS ABSOLUTE AUTO 0.03 10^3/uL (0.00-0.10); BASOPHILS PERCENT AUTO 0.2 % (0.0-1.0); EOSINOPHILS ABSOLUTE AUTO 0.03 10^3/uL (0.10-0.30); EOSINOPHILS PERCENT AUTO 0.2 % (1.0-3.0); HEMOGLOBIN 14.4 g/dL (13.0-17.0); IMMATURE GRAN ABSOLUTE AUTO 0.16 10^3/uL (0.00-0.50); IMMATURE GRAN PERCENT AUTO 0.9 % (0.0-5.0); LYMPHOCYTES ABSOLUTE AUTO 1.14 10^3/uL (1.00-4.00); LYMPHOCYTES PERCENT AUTO 6.6 % (20.0-40.0); MEAN CORPUSCULAR HEMOGLOBIN 30.4 pg (27.0-31.0); MEAN CORPUSCULAR HGB CONC 30.6 g/dL (32.0-36.0); MEAN CORPUSCULAR VOLUME 99.2 fL (82.0-92.0); MEAN PLATELET VOLUME 10.4 fL (7.4-10.4); MONOCYTES ABSOLUTE AUTO 1.37 10^3/uL (0.10-0.80); MONOCYTES PERCENT AUTO 7.9 % (2.0-8.0); NEUTROPHILS PERCENT AUTO 84.2 % (50.0-70.0); PLATELET COUNT,PLT 146 10^3/uL (150-400); RED BLOOD CELL COUNT 4.74 10^6/uL (4.50-6.00); RED CELL DISTRIBUTION WIDTH 15.6 % (11.5-14.5); WHITE BLOOD CELL COUNT,WBC 17.33 10^3/uL (5.00-10.00)
[2023-08-05 14:55] LABS: ALANINE AMINOTRANSFERASE,ALT 37 U/L (14-63); ALBUMIN 2.42 g/dL (3.40-5.00); ALKALINE PHOSPHATASE 106 U/L (46-116); ANION GAP 9.5 mmol/L (5-15); ASPARTATE AMNIOTRANSFERASE,AST 15 U/L (15-37); B-TYPE NATRIURETIC PEPTIDE,BNP 314 pg/mL (0-100); BILIRUBIN TOTAL 0.4 mg/dL (0.2-1.0); BLOOD UREA NITROGEN,BUN 25 mg/dL (7-18); CALCIUM 8.8 mg/dL (8.7-10.3); CARBON DIOXIDE,CO2 38.4 mmol/L (21.0-32.0); CHLORIDE,CL 97 mmol/L (98-107); GLUCOSE RANDOM 238 mg/dL (70-140); POTASSIUM,K 4.9 mmol/L (3.5-5.1); PROTEIN TOTAL,TP 6.6 g/dL (6.4-8.2); SODIUM,NA 140 mmol/L (136-145)
[2023-08-05 14:57] LABS: ESTIMATED GFR 59 mL/min (>=60)
[2023-08-05] MEDS: Albuterol/Ipratropium 3.0-0.5 MG/3 ML Neb Soln NEB ONE (15:53)
[2023-08-05 16:22] VITALS: BP 120/94; PULSE 114
[2023-08-05] MEDS: Furosemide 40 MG/4 ML VIAL IVPUSH ONE (16:49)
[2023-08-05] MEDS: cefTRIAXone 2 GM Vial IVPUSH ONE (16:57)
[2023-08-05 17:34] LABS: CORONAVIRUS COVID-19 NAA NEGATIVE (NEGATIVE); INFLUENZA A NAA NEGATIVE (NEGATIVE); INFLUENZA B NAA NEGATIVE (NEGATIVE); RESPIRATORY SYNCYTIAL VIR NAA NEGATIVE (NEGATIVE)
[2023-08-05] MEDS: Sodium Chloride 0.9% 1,000 ML IV ONE (17:35)
[2023-08-05] MEDS: Sodium Chloride 0.9% 1,000 ML ONE (19:00)
== END 2023-08-05 18:40 ==
LOC: KA.ED 14:05
DX: J96.01 Acute respiratory failure with hypoxia (principal); J90 Pleural effusion, not elsewhere classified; D72.829 Elevated white blood cell count, unspecified; I11.0 Hypertensive heart disease with heart failure; I50.9 Heart failure, unspecified; Z79.899 Other long term (current) drug therapy; Z79.4 Long term (current) use of insulin
CPT/HCPCS: 0241U; 36415; 71045; 80053; 82947; 83605; 83880; 84484; 85025; 86140; 93005; 94640; 96374; 96375; 99285-25; J0696; J1940; J7030; J7620-GY